=== PATIENT | female | born 1955 | race African-American/Black ===

== ENCOUNTER 2016-07-13 11:53 | Emergency (ER) | payer OTHER ==
[~2016-07-13] VITALS: Ht 160 cm; Wt 58.2 kg
[~2016-07-13 11:53] MED LIST: ATRO17AE INH; BECL80AE3 INH; COMBAER INH; PRED50 PO
[2016-07-13 11:55] VITALS: BP 156/84; PULSE 100; RESP 16; TEMP 97.7; O2SAT 94
--- NOTE | 2016-07-13 11:59 | PD ---
Physical Exam Time Seen by Provider: 11:56 Narrative 61 year old female with history of asthma presents to the ED for evaluation of shortness of breath off and on for about a week. Typical of asthma exacerbation. Describes chest tightness no pain. No cardiac history . Pt has been using atrovent and albuterol as needed and feels she is using them frequently. No recent illness, fever, or chills. No other symptoms to report. Data Data Last Documented VS Vital Signs Date Time Temp Pulse Resp B/P Pulse Ox O2 Delivery O2 Flow Rate FiO2 07/13/16 11:55 97.7 100 16 156/84 94 Room Air Orders Prednisone (Deltasone) (07/13/16 12:15) Albuterol-Ipratropium Neb (Duoneb Neb) (07/13/16 12:15) MDM Medical Record Reviewed: Yes Supervised Visit with ARIANE: No Narrative Course Interviewed in triage. Pt appears well and without distress. Scripts Prednisone (Deltasone)20 Mg Tab40 Mg PO DAILY 4 Days Ref 0 start 07/14/2016 Prov:Courtney Lau 07/13/16 Condition: Stable Penelope Werner Jul 13, 2016 11:59
[2016-07-13] MEDS ORDERED: VENTAER INH ×2 (12:05→13:42)
[2016-07-13] MEDS ORDERED: RESP: ALBUTEROL 2.5 MG/IPRATROPIUM 0.5 MG NEB (SCH) INH ONE (12:15)
[2016-07-13] MEDS ORDERED: predniSONE 20 MG TAB PO ONE (12:15)
[2016-07-13] MEDS ORDERED: PRED-503 PO (12:44)
--- NOTE | 2016-07-13 12:52 | PD ---
HPI Chief Complaint: Respiratory Distress Time Seen by Provider: 12:41 Travel History International Travel<30 days: No Contact w/Intl Traveler<30days: No Traveled to known affect area: No History of Present Illness HPI 61-year-old female presents to the emergency Department with complaint of asthma exacerbation that she is unable to get under control. She has history of asthma and has been using her inhalers with minimal relief of symptoms. Reports chest tightness without pain. Denies cardiac history. Reports some shortness of breath. Denies wheezing at this time but was wheezing earlier today. Last use albuterol inhaler approximately 4 hours ago. No known aggravating factors. Denies other significant past medical history. No known allergies. No other modifying factors or associated signs and symptoms. PFSH Past Medical History Asthma: Yes Cancer: No Diabetes: No Diminished Hearing: No Hepatitis: No Hiatal Hernia: No Respiratory: Yes (ASTHMA) Thyroid Disease: No PNEUMOCCOCAL Vaccine (Year): 2 ?: Not Menopausal: Yes : 1 Para: 1 Past Surgical History Other Surgery: Yes (SINUS SURGERY) Social History Alcohol Use: No Tobacco Use: No Substance Use: No Allergies-Medications (Allergen,Severity, Reaction): Coded Allergies: No Known Allergies (Verified , 12/13/15) Reported Meds & Prescriptions Reported Meds & Active Scripts Active Ventolin Hfa 18 GM Inh (Albuterol Sulfate) 90 Mcg/Act Aer 2 Puff INH Q4-6H PRN Deltasone (Prednisone) 20 Mg Tab 40 Mg PO DAILY 4 Days start 07/14/2016 Reported Ventolin Hfa 18 GM Inh (Albuterol Sulfate) 90 Mcg/Act Aer 2 Puff INH Q4-6H PRN Review of Systems Except as stated in HPI: all other systems reviewed are Neg Physical Exam Narrative GENERAL: Well-nourished, well-developed female patient, in no acute distress SKIN: Warm and dry. HEAD: Atraumatic. Normocephalic. EYES: Pupils equal and round. No scleral icterus. No injection or drainage. ENT: Mucosa pink and moist. Airway patent. EARS: Bilateral pinnae and external canals appear within normal limits. NECK: Trachea midline. No lymphadenopathy. CARDIOVASCULAR: Regular rate and rhythm. No murmur appreciated. RESPIRATORY: No accessory muscle use. Lungs with mild Wheezing throughout to auscultation. Breath sounds equal bilaterally. No retractions or tachypnea. No Audible wheezing noted. GASTROINTESTINAL: Abdomen soft, non-tender, nondistended. Hepatic and splenic margins not palpable. Bowel sounds are active 4 quadrants. MUSCULOSKELETAL: No obvious deformities. No clubbing. No cyanosis. No edema. NEUROLOGICAL: Awake and alert. Oriented 3. No obvious cranial nerve deficits. Motor grossly within normal limits. Normal speech. Moves all extremities. 5/5 strength to all extremities. PSYCHIATRIC: Appropriate mood and affect; insight and judgment normal. Data Data Last Documented VS Vital Signs Date Time Temp Pulse Resp B/P Pulse Ox O2 Delivery O2 Flow Rate FiO2 07/13/16 11:55 97.7 100 16 156/84 94 Room Air Orders Prednisone (Deltasone) (07/13/16 12:15) Albuterol-Ipratropium Neb (Duoneb Neb) (07/13/16 12:15) [facility] Medical Decision Making Medical Screen Exam Complete: Yes Emergency Medical Condition: Yes Medical Record Reviewed: Yes Differential Diagnosis Asthma exacerbation, viral illness, COPD Narrative Course 61-year-old female with history of asthma comes in with mild asthma exacerbation. She is in no acute distress and without retractions or tachypnea. Lung sounds are with mild diffuse wheezing. No audible wheezing. DuoNeb 1 and Deltasone ordered. 1343: On reexamination the patient reports improvement in symptoms. Denies chest tightness or shortness of breath. Lung sounds are clear and equal throughout. Deltasone and Ventolin inhaler prescribed for home. Patient is medically cleared and stable for discharge. Discussed reasons to return to the emergency department. Instructed patient to follow up with primary care provider. Patient agrees with treatment plan. The patients vital signs are stable and the patient is stable for outpatient follow-up and treatment. Patient discharged home, stable and in no acute distress. Diagnosis Primary Impression: Asthma exacerbation Referrals: Primary Care Physician Patient Instructions: Asthma (ED), General Instructions Additional Instructions: Use albuterol inhaler as needed for shortness of breath and/or wheezing Take oral steroids as prescribed and complete full course avoid asthma triggers such as second hand smoke, dust, known allergens Follow-up with primary care provider within 1 to 2 days Return to emergency department immediately with worsening of symptoms Med/Other Pt SpecificInfo: Prescription(s) given Scripts Albuterol 18 GM Inh (Ventolin Hfa 18 GM Inh)90 Mcg/Act Aer2 Puff INH Q4-6H PRN ( SOB/WHEEZING) #1 INHALER Ref 0 Prov:Courtney Lau 07/13/16 Prednisone (Deltasone)20 Mg Tab40 Mg PO DAILY 4 Days Ref 0 start 07/14/2016 Prov:Courtney Lau 07/13/16 Disposition: 01 DISCHARGE HOME Condition: Stable Courtney Lau Jul 13, 2016 12:52
== END 2016-07-13 14:21 | disposition home or self-care (01) ==
LOC: NEPB 11:53
DX: J45.901 Unspecified asthma with (acute) exacerbation (principal)
CPT/HCPCS: 94664; 99283; J7512

== ENCOUNTER 2017-02-19 13:50 | Emergency (ER) | payer OTHER ==
[~2017-02-19] VITALS: Ht 160 cm; Wt 59.0 kg
[~2017-02-19 13:50] MED LIST changes: -ATRO17AE INH; -BECL80AE3 INH; -COMBAER INH; +PRED-503 PO; -PRED50 PO; +VENTAER INH
[2017-02-19 13:52] VITALS: BP 156/85; PULSE 96; RESP 20; TEMP 98.5; O2SAT 95
[2017-02-19] MEDS ORDERED: predniSONE 20 MG TAB PO STA (14:37)
[2017-02-19] MEDS ORDERED: PRED-503 PO (14:47)
[2017-02-19] MEDS: RESP: ALBUTEROL 2.5 MG/IPRATROPIUM 0.5 MG NEB (SCH) INH ×2 (14:48→14:49)
--- NOTE | 2017-02-19 14:48 | PD ---
HPI Chief Complaint: Respiratory Symptoms Time Seen by Provider: 14:27 Travel History International Travel<30 days: No Contact w/Intl Traveler<30days: No Traveled to known affect area: No History of Present Illness HPI This 61 year-old woman with a history of asthma presents emergent [place] worsening shortness of breath or asthma symptoms over the past couple weeks. She's been using her inhaler more. Some productive cough. No fevers. She otherwise has been feeling generally well and healthy. History Past Medical History Narrative Medical Asthma Allergies Tetanus Vaccination: Unknown PNEUMOCCOCAL Vaccine (Year): 2 Menopausal: Yes : 1 Para: 1 Social History Alcohol Use: No Tobacco Use: No Allergies-Medications (Allergen,Severity, Reaction): Coded Allergies: No Known Allergies (Verified , 02/19/17) Reported Meds & Prescriptions Reported Meds & Active Scripts Active Ventolin Hfa 18 GM Inh (Albuterol Sulfate) 90 Mcg/Act Aer 2 Puff INH Q4-6H PRN Deltasone (Prednisone) 20 Mg Tab 40 Mg PO DAILY 4 Days start 07/14/2016 Reported Ventolin Hfa 18 GM Inh (Albuterol Sulfate) 90 Mcg/Act Aer 2 Puff INH Q4-6H PRN Review of Systems Except as stated in HPI: all other systems reviewed are Neg Physical Exam Narrative GENERAL: Well-appearing 7-year-old, no acute distress. SKIN: Focused skin assessment warm/dry. HEAD: Atraumatic. Normocephalic. EYES: Pupils equal and round. No scleral icterus. No injection or drainage. ENT: No nasal bleeding or discharge. Mucous membranes pink and moist. NECK: Trachea midline. No JVD. CARDIOVASCULAR: Regular rate and rhythm. No murmur appreciated. RESPIRATORY: No respiratory distress. Respiratory wheezing throughout the lung viveros. GASTROINTESTINAL: Abdomen soft, non-tender, nondistended. Hepatic and splenic margins not palpable. MUSCULOSKELETAL: No obvious deformities. No clubbing. No cyanosis. No edema. NEUROLOGICAL: Awake and alert. No obvious cranial nerve deficits. Motor grossly within normal limits. Normal speech. PSYCHIATRIC: Appropriate mood and affect; insight and judgment normal. Data Data Last Documented VS Vital Signs Date Time Temp Pulse Resp B/P (MAP) Pulse Ox O2 Delivery O2 Flow Rate FiO2 02/19/17 14:11 82 20 98 Room Air 02/19/17 13:52 98.5 156/85 (108) Orders Orders Albuterol-Ipratropium Neb (Duoneb Neb) (02/19/17 14:45) Prednisone (Deltasone) (02/19/17 14:37) [facility] Medical Decision Making Medical Screen Exam Complete: Yes Emergency Medical Condition: Yes Differential Diagnosis Asthma, pneumonia, URI, PE, other Narrative Course Medical decision making This is a 61 year-old woman who presents to the emergency department complaining of increased asthma symptoms. Looks well. Some wheezing. We'll treat for asthma exacerbation. Diagnosis Primary Impression: Asthma exacerbation Additional Instructions: Continue albuterol every 4-6 hours until symptoms resolve. Take prednisone as prescribed. All with her primary doctor in 3-5 days. Feeling improved. Return to the emergency department for any worsening trouble breathing. Med/Other Pt SpecificInfo: Prescription(s) given Scripts Prednisone (Deltasone) 20 Mg Tab 60 MG PO DAILY for 5 Days, TAB 0 Refills Prov: Darío Allen MD 02/19/17 Disposition: 01 DISCHARGE HOME Condition: Stable Darío Allen MD Feb 19, 2017 14:48
== END 2017-02-19 15:26 | disposition home or self-care (01) ==
LOC: NEPD 13:50
DX: J45.901 Unspecified asthma with (acute) exacerbation (principal)
CPT/HCPCS: 94640; 94664; 99285; J7512

== ENCOUNTER 2017-06-12 11:17 | Emergency (ER) | payer OTHER ==
[2017-06-12 11:18] VITALS: BP 171/99; PULSE 122; RESP 12; TEMP 98.4; O2SAT 100
[2017-06-12 12:00] VITALS: O2SAT 98
[2017-06-12] MEDS ORDERED: PRED20 PO (12:15)
[2017-06-12] MEDS ORDERED: methylPREDNISolone SOD SUCC 125 MG/2 ML VIAL IM ONE (12:15)
--- NOTE | 2017-06-12 12:15 | PD ---
HPI Chief Complaint: Respiratory Symptoms Time Seen by Provider: 11:56 Travel History International Travel<30 days: No Contact w/Intl Traveler<30days: No Traveled to known affect area: No History of Present Illness HPI 61-year-old female presents to the emergency room for evaluation of acute asthma exacerbation. Patient has had wheezing, cough, and shortness of breath for the past 3 days. States they were the worst last night but she did not come in because if she sat up on her recliner, she was okay. She has been taking Mucinex, cough syrup, and using her albuterol rescue inhalers for the past 3 days with moderate relief in symptoms. States her asthma is usually well -controlled but over the past several months it has been worsening. She was last on steroids in January. She has an appointment with her clay temperer to do allergy testing in July. Denies any heart disease or chest pain. She does not smoke and is not around smoke. No history of COPD. Denies any other chronic medical conditions or daily medications. Denies fever. PFSH Past Medical History Asthma: Yes Cancer: No Diabetes: No Diminished Hearing: No Hepatitis: No Hiatal Hernia: No Respiratory: Yes (ASTHMA, ALLERGIES) Thyroid Disease: No PNEUMOCCOCAL Vaccine (Year): 2 Menopausal: Yes : 1 Para: 1 Past Surgical History Other Surgery: Yes (SINUS SURGERY) Social History Alcohol Use: No Tobacco Use: No Substance Use: No Allergies-Medications (Allergen,Severity, Reaction): Coded Allergies: No Known Allergies (Verified , 02/19/17) Reported Meds & Prescriptions Reported Meds & Active Scripts Active Prednisone 20 Mg Tab 40 Mg PO DAILY Take 40 mg (2 tablets) daily for 5 days Deltasone (Prednisone) 20 Mg Tab 60 Mg PO DAILY 5 Days Ventolin Hfa 18 GM Inh (Albuterol Sulfate) 90 Mcg/Act Aer 2 Puff INH Q4-6H PRN Deltasone (Prednisone) 20 Mg Tab 40 Mg PO DAILY 4 Days start 07/14/2016 Reported Ventolin Hfa 18 GM Inh (Albuterol Sulfate) 90 Mcg/Act Aer 2 Puff INH Q4-6H PRN Review of Systems Except as stated in HPI: all other systems reviewed are Neg Physical Exam Narrative GENERAL: Well-nourished, well-developed female in no acute distress. Afebrile. Ambulatory. SKIN: Focused skin assessment warm/dry. HEAD: Normocephalic. EYES: No scleral icterus. No injection or drainage. NECK: Supple, trachea midline. No JVD or lymphadenopathy. CARDIOVASCULAR: Regular rate and rhythm without murmurs, gallops, or rubs. RESPIRATORY: No accessory muscle use. No significant increased work of breathing. Bilateral expiratory wheezes. No crackles, rales, or rhonchi. PSYCHIATRIC: No delusional thought processes. No hallucinations. Data Data Last Documented VS Vital Signs Date Time Temp Pulse Resp B/P (MAP) Pulse Ox O2 Delivery O2 Flow Rate FiO2 06/12/17 11:18 98.4 122 12 171/99 (123) 100 Orders Orders Chest, Pa & Lat (06/12/17 12:05) Oximetry (06/12/17 12:05) Methylprednisolone So Succ Inj (Solumedr (06/12/17 12:15) Albuterol-Ipratropium Neb (Duoneb Neb) (06/12/17 12:15) MDM Medical Decision Making Medical Screen Exam Complete: Yes Emergency Medical Condition: Yes Medical Record Reviewed: Yes Differential Diagnosis Exacerbation, COPD exacerbation, pneumonia Narrative Course 61-year-old otherwise healthy female presents to the emergency room for evaluation of acute asthma exacerbation. Symptoms have been ongoing for the past 3 days and include shortness of breath, wheezing, and mildly productive cough. Patient denies systemic signs of infection. She is well-appearing in the emergency room. Resting comfortably in bed. No increased work of breathing. Vital signs stable. Heart rate is 86 bpm and she is 100% on room air. There are moderate expiratory wheezes and bilateral lung viveros especially on the left. Given patient's history of cough, x-ray was obtained to evaluate for pneumonia. She was given 125 mg of IM Solu-Medrol and 3 duo nebs. Chest x-ray is unremarkable. Patient reports improvement in symptoms. She was discharged with prescription for prednisone and told to follow-up with her clay temperer as planned or return for worsening symptoms. She understands and agrees to plan. Diagnosis Primary Impression: Asthma exacerbation Qualified Codes: J45.21 - Mild intermittent asthma with (acute) exacerbation Referrals: Respiratory Therapist Additional Instructions: Rest and drink plenty of fluids. Take prednisone as directed, until gone. Start tomorrow. Albuterol as directed, as needed for wheezing and shortness of breath. Follow-up with a clay temperer. Return to the emergency room for worsening symptoms. Med/Other Pt SpecificInfo: Prescription(s) given Scripts Prednisone (Prednisone) 20 Mg Tab 40 MG PO DAILY, #10 TAB 0 Refills Take 40 mg (2 tablets) daily for 5 days Prov: Nikos Quintana MD 06/12/17 Disposition: 01 DISCHARGE HOME Condition: Stable Grace Banks Jun 12, 2017 12:15
[2017-06-12] MEDS: RESP: ALBUTEROL 2.5 MG/IPRATROPIUM 0.5 MG NEB (SCH) INH ×2 (12:38→12:39)
--- NOTE | 2017-06-12 12:47 | RADRPT ---
EXAM DATE/TIME: 06/12/2017 12:24 [place] COMPARISON: No previous studies available for comparison. INDICATIONS : Short of breath and wheezig for three days. MEDICAL HISTORY : None. SURGICAL HISTORY : None. ENCOUNTER: Initial ACUITY: 3 days PAIN SCORE: 8/10 LOCATION: Bilateral chest FINDINGS: PA and lateral views of the chest demonstrate the lungs to be symmetrically aerated without evidence of mass, infiltrate or effusion. The cardiomediastinal contours are unremarkable. Osseous structure s are intact. CONCLUSION: No acute disease. Isidro Cadnea MD FACR on June 12, 2017 at 12:45 Board Certified Radiologist. This report was verified electronically.
[2017-06-12 14:50] VITALS: BP 159/74
== END 2017-06-12 15:23 | disposition home or self-care (01) ==
LOC: NEPC 11:17
DX: J45.21 Mild intermittent asthma with (acute) exacerbation (principal)
CPT/HCPCS: 71020; 94664; 96372; 99283; J2930